=== PATIENT | male | born 1975 | race African-American/Black ===

== ENCOUNTER 2020-03-22 12:50 | Inpatient (IN) | payer OTHER ==
[2020-03-22] MEDS ORDERED: SODIUM CHLORIDE 0.9% 1,000 ML IV ONE (13:53)
--- NOTE | 2020-03-22 13:54 | ED ---
General Adult HPI - General Source: patient, EMS, RN notes reviewed, old records reviewed Mode of arrival: EMS Limitations: no limitations <Kesha Jones - Last Filed: 03/22/20 14:50> <Song Vega - Last Filed: 03/22/20 16:59> - General Chief complaint: Recheck/Abnormal Lab/Rx Stated complaint: High BP Time Seen by Provider: 03/22/20 13:11 - History of Present Illness Initial comments: Current is a 44-year-old male who presents emergency room today from [facility] for concerns for increased lethargy and elevated blood pressure. Patient does have a history of hypertension and has taken blood pressure medication in the past 3 days. According to [facility] nursing note he's been very sleepy and unable to stay awake for longer than 1 minute. He denies any symptoms associated with fatigue including headache or chest pains. He reports that he has no history of drug use and is at [facility] rehab facility for alcohol abuse. Apparently patient's blood pressures were 180 or higher systolic. In regards to patient's lethargy he states that he has not slept well in the past few days prior to coming [facility]. Patient has been there for approximately one day.Patient reports that he is from [facility] (Kesha Jones) - Related Data Home Medications Medication Instructions Recorded Confirmed Acetaminophen [Tylenol 8 Hour] 650 mg PO Q4H PRN 03/22/20 03/22/20 Chlorpheniramine Maleate 4 mg PO Q4H PRN 03/22/20 03/22/20 [Chlor-Trimeton] Folic Acid 1 mg PO DAILY@0600 03/22/20 03/22/20 Ibuprofen [Motrin] 600 mg PO Q6H PRN 03/22/20 03/22/20 Labetalol [Trandate] 200 mg PO BID@0600,1730 03/22/20 03/22/20 Multivitamins, Thera [Multivitamin 1 tab PO DAILY 03/22/20 03/22/20 (formulary)] Potassium Chloride 10 meq PO DAILY@0600 03/22/20 03/22/20 Thiamine [Vitamin B-1] 100 mg PO DAILY 03/22/20 03/22/20 amLODIPine [Norvasc] 10 mg PO ONCE 03/22/20 03/22/20 cloNIDine HCL [Catapres] 0.1 - 0.3 mg PO Q4H PRN MDD OVER 03/22/20 03/22/20 160/100 cloNIDine HCL [Catapres] 0.2 mg PO ONCE 03/22/20 03/22/20 hydroCHLOROthiazide [Hydrodiuril] 25 mg PO ONCE 03/22/20 03/22/20 traZODone HCL [Desyrel] 50 - 150 mg PO HS 03/22/20 03/22/20 Allergies Allergy/AdvReac Type Severity Reaction Status Date / Time GERMANIA Inhibitors AdvReac Anaphylaxis Verified 03/22/20 13:55 Review of Systems ROS Other: All systems not noted in ROS Statement are negative. <Kesha Jones - Last Filed: 03/22/20 14:50> ROS Other: All systems not noted in ROS Statement are negative. <Song Vega - Last Filed: 03/22/20 16:59> ROS Statement: Those systems with pertinent positive or pertinent negative responses have been documented in the HPI. Past Medical History Past Medical History: Hypertension, Sleep Apnea/CPAP/BIPAP History of Any Multi-Drug Resistant Organisms: None Reported Past Surgical History: No Surgical Hx Reported Past Psychological History: No Psychological Hx Reported Smoking Status: Current some day smoker Past Alcohol Use History: Occasional Past Drug Use History: Marijuana <Denisse Jonesily - Last Filed: 03/22/20 14:50> General Exam Limitations: no limitations General appearance: alert, in no apparent distress Head exam: Present: atraumatic, normocephalic, normal inspection Eye exam: Present: normal appearance, PERRL, EOMI, other. Absent: scleral icterus, conjunctival injection, periorbital swelling ENT exam: Present: normal exam, mucous membranes moist Neck exam: Present: normal inspection. Absent: tenderness, meningismus, lymphad enopathy Respiratory exam: Present: normal lung sounds bilaterally. Absent: respiratory distress, wheezes, rales, rhonchi, stridor Cardiovascular Exam: Present: regular rate, normal rhythm, normal heart sounds. Absent: systolic murmur, diastolic murmur, rubs, gallop, clicks GI/Abdominal exam: Present: soft, normal bowel sounds. Absent: distended, tenderness, guarding, rebound, rigid Extremities exam: Present: normal inspection, full ROM, normal capillary refill. Absent: tenderness, pedal edema, joint swelling, calf tenderness Back exam: Present: normal inspection Neurological exam: Present: alert, oriented X3, CN II-XII intact Psychiatric exam: Present: normal affect, normal mood Skin exam: Present: warm, dry, intact, normal color. Absent: rash <Kesha Jones - Last Filed: 03/22/20 14:50> - General Exam Comments Initial Comments: 44-year-old male. Patient is very fatigued, will answer questions and is alert and oriented but falls asleep after a minute of staying awake. (Kesha Jones) Course <Kesha Jones - Last Filed: 03/22/20 14:50> Vital Signs 03/22/20 03/22/20 03/22/20 12:51 14:19 15:16 Temperature 98.0 F Pulse Rate 90 97 96 Respiratory 20 20 20 Rate Blood Pressure 155/115 168/120 175/122 O2 Sat by Pulse 96 100 94 L Oximetry 03/22/20 03/22/20 16:24 16:52 Temperature 98.3 F Pulse Rate 82 Respiratory 18 18 Rate Blood Pressure 147/110 134/69 O2 Sat by Pulse 98 Oximetry - Reevaluation(s) Reevaluation #1: 03/22/20 14:51 I went to reevaluate the Patient at this time and blood pressure is noted to be 185/118. Patient was sleepy but easily arousable and alert and cooperative. He complains of no pain. Discussed his blood pressure started to go up. When questioned if he took his blood pressure medication he states that he did physically take it at the rehab facility but they were given to him by [facility] staff as documented. When discussing possible admission for hypertensive emergency Patient states he would prefer to go home. (Kesha Jones) EKG Findings - EKG Comments: EKG Findings:: EKG performed at 1410 shows sinus rhythm with left anterior fascicular block. Voltage criteria for LVH. Inferior infarct age- indeterminate. Ventricular rate of [address] interval is 158 ms. QRS duration is 110 ms. QT QTc is 412/481 ms. <Kesha Jones - Last Filed: 03/22/20 14:50> Medical Decision Making - Lab Data Result diagrams: 03/22/20 14:00 03/22/20 14:00 <Kesha Jones - Last Filed: 03/22/20 14:50> - Lab Data Result diagrams: 03/22/20 14:00 03/22/20 16:25 <Song Vega - Last Filed: 03/22/20 16:59> - Medical Decision Making 44-year-old male with history of alcohol abuse presents [facility] for concerns for uncontrolled blood pressures and fatigue. Patient initially reported he was not taking his blood pressure medication however review [facility] he has been compliant with his blood pressure medications. The continues to be hypertensive. Patient is also very groggy but has been dosed on Ativan to help prevent withdrawals from alcohol. He denies any complaints or symptoms of elevated blood pressure including headache or chest pain.Patient was given IV fluids labwork obtained. He was quite fatigued. She has significant lab abnormalities with 3.1. Potassium of 2.7. He does have an elevated troponin as well. He denies chest pain. No previous EKGs to compare from. Denies any previous cardiac stents. is quite worried to go back to rehab sees synthesis will be paid for his rehab from his [employer]. I discussed with significant lab 3 dementia Patient would need to be admitted. We'll transfer the case to Dr. Monroe at 3:06 PM. (Kesha Jones) Patient had repeat laboratory testing in the emergency department, suspect that his initial labs were diluted. Patient has a normal calcium, he does have hypokalemia which is replaced the emergency department. Troponin mildly elevated with no chest pain, this level will be trended. He is given an aspirin in the emergency department. Case discussed with Dr. Marmolejo who will admit for alcohol withdrawal, monitoring of blood pressure, and electronically abnormalities. (Song Vega) - Lab Data Lab Results 03/22/20 03/22/20 03/22/20 Range/Units 14:00 14:00 14:00 WBC 5.4 (3.8-10.6) k/uL RBC 5.65 (4.30-5.90) m/uL Hgb 16.4 (13.0-17.5) gm/dL Hct 52.3 (39.0-53.0) % MCV 92.6 (80.0-100.0) fL MCH 29.1 (25.0-35.0) pg MCHC 31.4 (31.0-37.0) g/dL RDW 16.6 H (11.5-15.5) % Plt Count 161 (150-450) k/uL Neutrophils % 71 % Lymphocytes % 17 % Monocytes % 4 % Eosinophils % 5 % Basophils % 1 % Neutrophils # 3.8 (1.3-7.7) k/uL Lymphocytes # 0.9 L (1.0-4.8) k/uL Monocytes # 0.2 (0-1.0) k/uL Eosinophils # 0.3 (0-0.7) k/uL Basophils # 0.1 (0-0.2) k/uL Anisocytosis Slight Sodium 149 H (137-145) mmol/L Potassium 2.9 L (3.5-5.1) mmol/L Chloride 72 L* (98-107) mmol/L Carbon Dioxide 20 L (22-30) mmol/L Anion Gap 57 mmol/L BUN 9 (9-20) mg/dL Creatinine 0.81 (0.66-1.25) mg/dL Est GFR (CKD-EPI)AfAm >90 (>60 ml/min/1.73 sqM) Est GFR (CKD-EPI)NonAf >90 (>60 ml/min/1.73 sqM) Glucose 127 H (74-99) mg/dL Calcium 3.7 L* (8.4-10.2) mg/dL Total Bilirubin 3.4 H (0.2-1.3) mg/dL AST 73 H (17-59) U/L ALT 62 H (4-49) U/L Alkaline Phosphatase 44 (38-126) U/L Troponin I 0.060 H* (0.000-0.034) ng/mL Total Protein 6.6 (6.3-8.2) g/dL Albumin 4.7 (3.5-5.0) g/dL Urine Color Urine Appearance (Clear) Urine pH (5.0-8.0) Ur Specific [place] (1.001-1.035) Urine Protein (Negative) Urine Glucose (UA) (Negative) Urine Ketones (Negative) Urine Blood (Negative) Urine Nitrite (Negative) Urine Bilirubin (Negative) Urine Urobilinogen (<2.0) mg/dL Ur Leukocyte Esterase (Negative) Urine WBC (0-5) /hpf Ur Squamous Epith Cells (0-4) /hpf Hyaline Casts (0-2) /lpf Urine Mucus (None) /hpf Urine Opiates Screen (NotDetected) Ur Oxycodone Screen (NotDetected) Urine Methadone Screen (NotDetected) Ur Propoxyphene Screen (NotDetected) Ur Barbiturates Screen (NotDetected) U Tricyclic Antidepress (NotDetected) Ur Phencyclidine Scrn (NotDetected) Ur Amphetamines Screen (NotDetected) U Methamphetamines Scrn (NotDetected) U Benzodiazepines Scrn (NotDetected) Urine Cocaine Screen (NotDetected) U Marijuana (THC) Screen (NotDetected) 03/22/20 03/22/20 03/22/20 Range/Units 14:00 14:00 16:25 WBC (3.8-10.6) k/uL RBC (4.30-5.90) m/uL Hgb (13.0-17.5) gm/dL Hct (39.0-53.0) % MCV (80.0-100.0) fL MCH (25.0-35.0) pg MCHC (31.0-37.0) g/dL RDW (11.5-15.5) % Plt Count (150-450) k/uL Neutrophils % % Lymphocytes % % Monocytes % % Eosinophils % % Basophils % % Neutrophils # (1.3-7.7) k/uL Lymphocytes # (1.0-4.8) k/uL Monocytes # (0-1.0) k/uL Eosinophils # (0-0.7) k/uL Basophils # (0-0.2) k/uL Anisocytosis Sodium 139 (137-145) mmol/L Potassium 3.1 L (3.5-5.1) mmol/L Chloride 95 L (98-107) mmol/L Carbon Dioxide 30 (22-30) mmol/L Anion Gap 14 mmol/L BUN 12 (9-20) mg/dL Creatinine 1.04 (0.66-1.25) mg/dL Est GFR (CKD-EPI)AfAm >90 (>60 ml/min/1.73 sqM) Est GFR (CKD-EPI)NonAf 89 (>60 ml/min/1.73 sqM) Glucose 132 H (74-99) mg/dL Calcium 8.2 L (8.4-10.2) mg/dL Total Bilirubin 3.4 H (0.2-1.3) mg/dL AST 90 H (17-59) U/L ALT 80 H (4-49) U/L Alkaline Phosphatase 72 (38-126) U/L Troponin I (0.000-0.034) ng/mL Total Protein 7.8 (6.3-8.2) g/dL Albumin 4.7 (3.5-5.0) g/dL Urine Color [place] Urine Appearance Clear (Clear) Urine pH 6.0 (5.0-8.0) Ur Specific [place] 1.017 (1.001-1.035) Urine Protein 1+ H (Negative) Urine Glucose (UA) Negative (Negative) Urine Ketones Negative (Negative) Urine Blood Negative (Negative) Urine Nitrite Negative (Negative) Urine Bilirubin 1+ H (Negative) Urine Urobilinogen 8.0 (<2.0) mg/dL Ur Leukocyte Esterase Trace H (Negative) Urine WBC 4 (0-5) /hpf Ur Squamous Epith Cells <1 (0-4) /hpf Hyaline Casts 1 (0-2) /lpf Urine Mucus Moderate H (None) /hpf Urine Opiates Screen Not Detected (NotDetected) Ur Oxycodone Screen Not Detected (NotDetected) Urine Methadone Screen Not Detected (NotDetected) Ur Propoxyphene Screen Not Detected (NotDetected) Ur Barbiturates Screen Not Detected (NotDetected) U Tricyclic Antidepress Not Detected (NotDetected) Ur Phencyclidine Scrn Not Detected (NotDetected) Ur Amphetamines Screen Not Detected (NotDetected) U Methamphetamines Scrn Not Detected (NotDetected) U Benzodiazepines Scrn Detected H (NotDetected) Urine Cocaine Screen Not Detected (NotDetected) U Marijuana (THC) Screen Detected H (NotDetected) 03/22/20 13:54 EKG performed at 1332 shows sinus rhythm with short CT and premature atrial promises. Right bundle branch block. Abnormal EKG. Ventricular rate of [address] interval is 96 ms. QS duration is 124 ms. QT QTc is 392/435 ms. (Kesha Jones) Disposition <Kesha Jones - Last Filed: 03/22/20 14:50> Is patient prescribed a controlled substance at d/c from ED?: No Decision to Admit Reason: Admit from EC Decision Date: 03/22/20 Decision Time: 16:59 <Song Vega - Last Filed: 03/22/20 16:59> Clinical Impression: Hypokalemia, Hypertension, Elevated troponin, Alcohol withdrawal Disposition: ADMITTED IP TO THIS [facility] Condition: Stable Referrals: Nonstaff,Physician [Primary Care Provider] - 1-2 days
[2020-03-22 14:29] LABS: Anisocytosis Slight; Basophils # (A) 0.1 k/uL (0-0.2); Basophils % (A) 1 %; Eosinophils # (A) 0.3 k/uL (0-0.7); Eosinophils % (A) 5 %; HCT 52.3 % (39.0-53.0); HGB 16.4 gm/dL (13.0-17.5); Lymphocytes # (A) 0.9 k/uL (1.0-4.8); Lymphocytes % (A) 17 %; MCH 29.1 pg (25.0-35.0); MCHC 31.4 g/dL (31.0-37.0); MCV 92.6 fL (80.0-100.0); Monocytes # (A) 0.2 k/uL (0-1.0); Monocytes % (A) 4 %; Neutrophils # (A) 3.8 k/uL (1.3-7.7); Neutrophils % (A) 71 %; Platelet Count 161 k/uL (150-450); RBC 5.65 m/uL (4.30-5.90); RDW 16.6 % (11.5-15.5); WBC 5.4 k/uL (3.8-10.6)
[2020-03-22 14:33] LABS: Appearance,Urine Clear (Clear); Bilirubin,Urine 1+ (Negative); Blood,Urine Negative (Negative); Color,Urine Light Orange; Glucose,Urine (UA) Negative (Negative); Hyaline Casts,Urine 1 /lpf (0-2); Ketones,Urine Negative (Negative); Leukocyte Esterase,Urine Trace (Negative); Mucus,Urine Moderate /hpf; Nitrite,Urine Negative (Negative); Protein,Urine 1+ (Negative); Specific Gravity,Urine 1.017 (1.001-1.035); Squamous Epithelial Cell,Urine <1 /hpf (0-4); WBC,Urine 4 /hpf (0-5)
[2020-03-22 14:39] LABS: ALT 62 U/L (4-49); AST 73 U/L (17-59); African American GFR (CKD) >90 (>60 ml/min/1.73 sqM); Albumin 4.7 g/dL (3.5-5.0); Alkaline Phosphatase 44 U/L (38-126); Anion Gap 57 mmol/L; Blood Urea Nitrogen 9 mg/dL (9-20); Carbon Dioxide 20 mmol/L (22-30); Glucose 127 mg/dL (74-99); Non-African American GFR(CKD) >90 (>60 ml/min/1.73 sqM); Potassium 2.9 mmol/L (3.5-5.1); Sodium 149 mmol/L (137-145); Total Bilirubin 3.4 mg/dL (0.2-1.3); Total Protein 6.6 g/dL (6.3-8.2)
[2020-03-22 14:42] LABS: Amphetamine Screen,Urine Not Detected (NotDetected); Barbiturate Screen,Urine Not Detected (NotDetected); Benzodiazepines Screen,Urine Detected (NotDetected); Cocaine Screen,Urine Not Detected (NotDetected); Methadone Screen, Urine Not Detected (NotDetected); Opiate Screen,Urine Not Detected (NotDetected); Oxycodone Screen, Urine Not Detected (NotDetected); Phencyclidine Screen,Urine Not Detected (NotDetected); Tricyclic Antidepressant,Urine Not Detected (NotDetected); Urn Cannabinoid Scrn Detected (NotDetected)
[2020-03-22 14:48] LABS: Calcium 3.7 mg/dL (8.4-10.2); Chloride 72 mmol/L (98-107)
[2020-03-22] MEDS ORDERED: LABETALOL 5 MG/ML VIAL MDV IVP STA (14:50)
[2020-03-22] MEDS ORDERED: Potassium Replacement Protocol 1 EACH MISC MISCELLANE PRN (15:03)
[2020-03-22] MEDS ORDERED: POTASSIUM CHLORIDE ER 20 MEQ TAB.ER PO STA (15:04)
[2020-03-22] MEDS ORDERED: CALCIUM GLUCONATE 2 GM in SODIUM CHLORIDE 0.9% 100 ML IVPB ONE (15:15)
--- NOTE | 2020-03-22 15:31 | XR ---
EXAMINATION TYPE: XR chest 2V DATE OF EXAM: 03/22/2020 COMPARISON: NONE HISTORY: Chest pain TECHNIQUE: Frontal and lateral views of the chest are obtained. FINDINGS: There is no focal air space opacity. No evidence for pneumothorax. No pleural effusion. The cardiac silhouette size is within normal limits. The osseous structures are grossly intact. IMPRESSION: 1. No acute cardiopulmonary process.
[2020-03-22 16:45] LABS: ALT 80 U/L (4-49); AST 90 U/L (17-59); African American GFR (CKD) >90 (>60 ml/min/1.73 sqM); Albumin 4.7 g/dL (3.5-5.0); Alkaline Phosphatase 72 U/L (38-126); Anion Gap 14 mmol/L; Blood Urea Nitrogen 12 mg/dL (9-20); Calcium 8.2 mg/dL (8.4-10.2); Carbon Dioxide 30 mmol/L (22-30); Chloride 95 mmol/L (98-107); Glucose 132 mg/dL (74-99); Non-African American GFR(CKD) 89 (>60 ml/min/1.73 sqM); Potassium 3.1 mmol/L (3.5-5.1); Sodium 139 mmol/L (137-145); Total Bilirubin 3.4 mg/dL (0.2-1.3); Total Protein 7.8 g/dL (6.3-8.2)
[2020-03-22] MEDS ORDERED: THIAMINE 100 MG/ML 2 ML VIAL IM STA (16:56)
[2020-03-22] MEDS ORDERED: ASPIRIN 325 MG TAB PO STA (16:56)
[2020-03-22] MEDS ORDERED: LORazepam 2 MG/ML INJ IV PRN ×3 (16:56)
[2020-03-22] MEDS ORDERED: NALOXONE 0.4 MG/ML 1 ML VIAL IV PRN (16:57)
[2020-03-22] MEDS ORDERED: ACETAMINOPHEN TAB 325 MG TAB PO PRN (17:26)
--- NOTE | 2020-03-22 17:37 | P.HPIM ---
History of Present Illness 44-year-old pleasant male was a sent in from [facility] where he was admitted for alcohol rehabilitation program. Patient to use used to drink a daily basis since: 19 pandemic back before this patient used to drink only in weekends. Patient denied any fever chills patient had a previous withdrawals in the past patient was sent in here because of highly elevated blood pressure patient is on multiple antidepressant medications at home patient also found to have mildly elevated troponin. EKG is not are loaded into the system yet. She denied any fever chills patient denied any chest pain nausea vomiting patient the is on multiple antiepileptic present medications including beta denia, Norvasc, diuretic and that 10 mg of potassium supplementation patient potassium is low at 3.1. Review of Systems REVIEW OF SYSTEMS: CONSTITUTIONAL: No fever, no malaise, no fatigue. HEENT: No recent visual problems or hearing problems. Denied any sore throat. CARDIOVASCULAR: No chest pain, orthopnea, PND, no palpitations, no syncope. PULMONARY: No shortness of breath, no cough, no hemoptysis. GASTROINTESTINAL: No diarrhea, no nausea, no vomiting, no abdominal pain. NEUROLOGICAL: No headaches, no weakness, no numbness. HEMATOLOGICAL: Denies any bleeding or petechiae. GENITOURINARY: Denies any burning micturition, frequency, or urgency. MUSCULOSKELETAL/RHEUMATOLOGICAL: Denies any joint pain, swelling, or any muscle pain. ENDOCRINE: Denies any polyuria or polydipsia. The rest of the 14-point review of systems is negative. Past Medical History Past Medical History: Hypertension, Sleep Apnea/CPAP/BIPAP History of Any Multi-Drug Resistant Organisms: None Reported Past Surgical History: No Surgical Hx Reported Past Psychological History: No Psychological Hx Reported Smoking Status: Current some day smoker Past Alcohol Use History: Occasional Past Drug Use History: Marijuana Medications and Allergies Home Medications Medication Instructions Recorded Confirmed Type Acetaminophen [Tylenol 8 Hour] 650 mg PO Q4H PRN 03/22/20 03/22/20 History Chlorpheniramine Maleate 4 mg PO Q4H PRN 03/22/20 03/22/20 History [Chlor-Trimeton] Folic Acid 1 mg PO DAILY@0600 03/22/20 03/22/20 History Ibuprofen [Motrin] 600 mg PO Q6H PRN 03/22/20 03/22/20 History Labetalol [Trandate] 200 mg PO BID@0600,1730 03/22/20 03/22/20 History Multivitamins, Thera [Multivitamin 1 tab PO DAILY 03/22/20 03/22/20 History (formulary)] Potassium Chloride 10 meq PO DAILY@0600 03/22/20 03/22/20 History Thiamine [Vitamin B-1] 100 mg PO DAILY 03/22/20 03/22/20 History amLODIPine [Norvasc] 10 mg PO ONCE 03/22/20 03/22/20 History cloNIDine HCL [Catapres] 0.1 - 0.3 mg PO Q4H PRN MDD OVER 03/22/20 03/22/20 History 160/100 cloNIDine HCL [Catapres] 0.2 mg PO ONCE 03/22/20 03/22/20 History hydroCHLOROthiazide [Hydrodiuril] 25 mg PO ONCE 03/22/20 03/22/20 History traZODone HCL [Desyrel] 50 - 150 mg PO HS 03/22/20 03/22/20 History Allergies Allergy/AdvReac Type Severity Reaction Status Date / Time GERMANIA Inhibitors AdvReac Anaphylaxis Verified 03/22/20 13:55 Physical Exam Vitals: Vital Signs Temp Pulse Resp BP Pulse Ox 03/22/20 16:52 98.3 F 82 18 134/69 98 03/22/20 16:24 18 147/110 03/22/20 15:16 96 20 175/122 94 L 03/22/20 14:19 97 20 168/120 100 03/22/20 12:51 98.0 F 90 20 155/115 96 Intake and Output 03/22/20 03/22/20 03/22/20 06:59 14:59 22:59 Other: Weight 126.099 kg PHYSICAL EXAMINATION: GENERAL: The patient is alert and oriented x3, not in any acute distress. Obese. HEENT: Pupils are round and equally reacting to light. EOMI. No scleral icterus. No conjunctival pallor. Normocephalic, atraumatic. No pharyngeal erythema. No thyromegaly. CARDIOVASCULAR: S1 and S2 present. No murmurs, rubs, or gallops. PULMONARY: Chest is clear to auscultation, no wheezing or crackles. ABDOMEN: Soft, nontender, nondistended, normoactive bowel sounds. No palpable organomegaly. MUSCULOSKELETAL: No joint swelling or deformity. EXTREMITIES: No cyanosis, clubbing, or pedal edema. NEUROLOGICAL: Gross neurological examination did not reveal any focal deficits. SKIN: No rashes. Results CBC & Chem 7: 03/22/20 14:00 03/22/20 16:25 Labs: Abnormal Lab Results - Last 24 Hours (Table) 03/22/20 03/22/20 03/22/20 Range/Units 14:00 14:00 14:00 RDW 16.6 H (11.5-15.5) % Lymphocytes # 0.9 L (1.0-4.8) k/uL Sodium 149 H (137-145) mmol/L Potassium 2.9 L (3.5-5.1) mmol/L Chloride 72 L* (98-107) mmol/L Carbon Dioxide 20 L (22-30) mmol/L Glucose 127 H (74-99) mg/dL Calcium 3.7 L* (8.4-10.2) mg/dL Total Bilirubin 3.4 H (0.2-1.3) mg/dL AST 73 H (17-59) U/L ALT 62 H (4-49) U/L Troponin I 0.060 H* (0.000-0.034) ng/mL Urine Protein (Negative) Urine Bilirubin (Negative) Ur Leukocyte Esterase (Negative) Urine Mucus (None) /hpf U Benzodiazepines Scrn (NotDetected) U Marijuana (THC) Screen (NotDetected) 03/22/20 03/22/20 03/22/20 Range/Units 14:00 14:00 16:25 RDW (11.5-15.5) % Lymphocytes # (1.0-4.8) k/uL Sodium (137-145) mmol/L Potassium 3.1 L (3.5-5.1) mmol/L Chloride 95 L (98-107) mmol/L Carbon Dioxide (22-30) mmol/L Glucose 132 H (74-99) mg/dL Calcium 8.2 L (8.4-10.2) mg/dL Total Bilirubin 3.4 H (0.2-1.3) mg/dL AST 90 H (17-59) U/L ALT 80 H (4-49) U/L Troponin I (0.000-0.034) ng/mL Urine Protein 1+ H (Negative) Urine Bilirubin 1+ H (Negative) Ur Leukocyte Esterase Trace H (Negative) Urine Mucus Moderate H (None) /hpf U Benzodiazepines Scrn Detected H (NotDetected) U Marijuana (THC) Screen Detected H (NotDetected) 03/22/20 Range/Units 16:25 RDW (11.5-15.5) % Lymphocytes # (1.0-4.8) k/uL Sodium (137-145) mmol/L Potassium (3.5-5.1) mmol/L Chloride (98-107) mmol/L Carbon Dioxide (22-30) mmol/L Glucose (74-99) mg/dL Calcium (8.4-10.2) mg/dL Total Bilirubin (0.2-1.3) mg/dL AST (17-59) U/L ALT (4-49) U/L Troponin I 0.061 H* (0.000-0.034) ng/mL Urine Protein (Negative) Urine Bilirubin (Negative) Ur Leukocyte Esterase (Negative) Urine Mucus (None) /hpf U Benzodiazepines Scrn (NotDetected) U Marijuana (THC) Screen (NotDetected) Assessment and Plan Plan: -Essential hypertension uncontrolled, accelerated: Patient's diuretic dose will be increased to 50 mg or changed to chlorthalidone, beta denia will be switched to Coreg and will monitor the blood pressure. Patient doesn't have hypertensive emergency patient has hypertensive urgency -Alcohol abuse: Patient is undergoing the alcohol rehabilitation program before this hospital physician -Mildly elevated troponins Secondary to her elevated blood pressure cardiology will be consulted will rule out any acute coronary syndromes a lot and EKG -Nicotine abuse: Counseling was provided -Sleep apnea patient will continue with his CPAP machine will also rule out diabetes mellitus with hemoglobin A1c. -Acute alcoholic hepatitis -hypokalemia: Secondary to diuretics is receiving at home potassium will be replace -DVT prophylaxis early ambulation
[2020-03-22] MEDS: POTASSIUM CHLORIDE 20 MEQ in WATER FOR INJECTION 1 100ML.BAG IVPB SCH ×3 (17:47→21:36)
[2020-03-22] MEDS: THIAMINE 100 MG TAB PO SCH (17:52)
[2020-03-22] MEDS: carvediloL 12.5 MG TAB PO SCH (20:04)
[2020-03-22] MEDS: traZODone HCL 50 MG TAB PO SCH (20:04)
[2020-03-23] MEDS: FOLIC ACID 1 MG TAB PO SCH (06:32)
[2020-03-23] MEDS: THIAMINE 100 MG TAB PO SCH ×2 (06:33→16:24)
[2020-03-23] MEDS: POTASSIUM CHLORIDE ER 20 MEQ TAB.ER PO SCH ×3 (06:33→12:58)
[2020-03-23 07:02] LABS: VBG PH 7.5 (7.31-7.41)
[2020-03-23] MEDS: MULTIVITAMINS, THERA 1 EACH TAB PO SCH (08:41)
[2020-03-23] MEDS: hydroCHLOROthiazide 25 MG TAB PO SCH (08:41)
[2020-03-23] MEDS: amLODIPine 10 MG TAB PO SCH (08:42)
[2020-03-23] MEDS: carvediloL 12.5 MG TAB PO SCH ×2 (08:42→20:04)
[2020-03-23 08:45] LABS: African American GFR (CKD) >90 (>60 ml/min/1.73 sqM); Anion Gap 11 mmol/L; Blood Urea Nitrogen 17 mg/dL (9-20); Calcium 7.6 mg/dL (8.4-10.2); Carbon Dioxide 27 mmol/L (22-30); Chloride 100 mmol/L (98-107); Glucose 127 mg/dL (74-99); Non-African American GFR(CKD) >90 (>60 ml/min/1.73 sqM); Sodium 138 mmol/L (137-145)
[2020-03-23] MEDS ORDERED: THIAMINE 100 MG TAB PO SCH (09:00)
--- NOTE | 2020-03-23 11:12 | P.CRDCN ---
History of Present Illness Consult date: 03/23/20 History of present illness: This is a very pleasant 44 year-old the [place]an gentleman with a past medical history significant for hypertension and history of alcohol abuse who was transferred from an alcohol rehab facility to the hospital for further evaluation of uncontrolled blood pressure. The patient was admitted to that facility just recently. His pressure was found to be elevated and he was transferred for further evaluation. The patient stated that he was taking blood pressure medications at home but he has not been taking the medication for the last several days. We consulted to see the patient for further evaluation of abnormal cardiac enzymes. The troponin was checked and came in to be slightly abnormal but flat across the board. The patient clinically is asymptomatic. He denies any symptoms of chest pain or chest discomfort, shortness of breath, dizziness, heart racing, heart fluttering, or syncope. No lower extremities edema. The pressure has been better controlled on the current medical regimen. The EKG showed sinus rhythm without significant ST or T-wave abnormalities. The patient is not aware of any history of coronary artery disease or congestive heart failure or cardiac arrhythmia but he is aware of hypertension but he is not very compliant with his blood pressure medications. The EKG also showed findings consistent with left ventricular hypertrophy. At this point I would continue the current medical regimen. Continue monitor the blood pressure. Consider medical treatment for the mildly abnormal troponin which is likely related to uncontrolled blood pressure. I'll obtain an echocardiogram to assess for hypertensive heart disease and evidence of left ventricular hypertrophy. We'll continue following up with the patient Past Medical History Past Medical History: Hypertension, Sleep Apnea/CPAP/BIPAP Additional Past Medical History / Comment(s): ETOH(a few pints of brown liquor a day) History of Any Multi-Drug Resistant Organisms: None Reported Past Surgical History: No Surgical Hx Reported Past Psychological History: No Psychological Hx Reported Smoking Status: Current some day smoker Past Alcohol Use History: Occasional Past Drug Use History: Marijuana - Past Family History Father Family Medical History: Hypertension Mother Family Medical History: Hypertension Medications and Allergies Home Medications Medication Instructions Recorded Confirmed Type Acetaminophen [Tylenol 8 Hour] 650 mg PO Q4H PRN 03/22/20 03/22/20 History Chlorpheniramine Maleate 4 mg PO Q4H PRN 03/22/20 03/22/20 History [Chlor-Trimeton] Folic Acid 1 mg PO DAILY@0600 03/22/20 03/22/20 History Ibuprofen [Motrin] 600 mg PO Q6H PRN 03/22/20 03/22/20 History Labetalol [Trandate] 200 mg PO BID@0600,1730 03/22/20 03/22/20 History Multivitamins, Thera [Multivitamin 1 tab PO DAILY 03/22/20 03/22/20 History (formulary)] Potassium Chloride 10 meq PO DAILY@0600 03/22/20 03/22/20 History Thiamine [Vitamin B-1] 100 mg PO DAILY 03/22/20 03/22/20 History amLODIPine [Norvasc] 10 mg PO ONCE 03/22/20 03/22/20 History cloNIDine HCL [Catapres] 0.1 - 0.3 mg PO Q4H PRN MDD OVER 03/22/20 03/22/20 History 160/100 cloNIDine HCL [Catapres] 0.2 mg PO ONCE 03/22/20 03/22/20 History hydroCHLOROthiazide [Hydrodiuril] 25 mg PO ONCE 03/22/20 03/22/20 History traZODone HCL [Desyrel] 50 - 150 mg PO HS 03/22/20 03/22/20 History Allergies Allergy/AdvReac Type Severity Reaction Status Date / Time GERMANIA Inhibitors AdvReac Anaphylaxis Verified 03/22/20 13:55 Physical Exam Vitals: Vital Signs Temp Pulse Pulse Resp BP BP Pulse Ox 03/23/20 08:40 97.8 F 98 18 130/89 95 03/23/20 03:58 97.9 F 92 20 153/108 96 03/23/20 00:00 98 F 86 20 133/84 95 03/22/20 21:38 98 18 146/104 95 03/22/20 20:10 91 18 143/107 96 03/22/20 19:53 88 18 143/109 03/22/20 19:06 98.0 F 87 18 155/116 96 03/22/20 18:33 98.6 F 99 18 148/103 96 03/22/20 17:52 88 18 171/125 97 03/22/20 16:52 98.3 F 82 18 134/69 98 03/22/20 16:24 18 147/110 03/22/20 15:16 96 20 175/122 94 L 03/22/20 14:19 97 20 168/120 100 03/22/20 12:51 98.0 F 90 20 155/115 96 Intake and Output 03/22/20 03/23/20 03/23/20 22:59 06:59 14:59 Intake Total 540 480 Balance 540 480 Intake: Oral 540 480 Other: # Voids 2 1 Weight 126.099 kg 123.5 kg - Constitutional General appearance: no acute distress - Respiratory Respiratory: bilateral: CTA - Cardiovascular Rhythm: regular Heart sounds: normal: S1, S2 Results 03/22/20 14:00 03/23/20 06:22 Cardiac Enzymes 03/22/20 03/22/20 03/22/20 Range/Units 14:00 14:00 16:25 AST 73 H 90 H (17-59) U/L Troponin I 0.060 H* (0.000-0.034) ng/mL 03/22/20 03/22/20 03/22/20 Range/Units 16:25 19:23 22:09 AST (17-59) U/L Troponin I 0.061 H* 0.063 H* 0.066 H* (0.000-0.034) ng/mL CBC 03/22/20 Range/Units 14:00 WBC 5.4 (3.8-10.6) k/uL RBC 5.65 (4.30-5.90) m/uL Hgb 16.4 (13.0-17.5) gm/dL Hct 52.3 (39.0-53.0) % Plt Count 161 (150-450) k/uL Comprehensive Metabolic Panel 03/22/20 03/22/20 03/23/20 Range/Units 14:00 16:25 06:22 Sodium 149 H 139 138 (137-145) mmol/L Potassium 2.9 L 3.1 L 3.0 L (3.5-5.1) mmol/L Chloride 72 L* 95 L 100 (98-107) mmol/L Carbon Dioxide 20 L 30 27 (22-30) mmol/L BUN 9 12 17 (9-20) mg/dL Creatinine 0.81 1.04 1.01 (0.66-1.25) mg/dL Glucose 127 H 132 H 127 H (74-99) mg/dL Calcium 3.7 L* 8.2 L 7.6 L (8.4-10.2) mg/dL AST 73 H 90 H (17-59) U/L ALT 62 H 80 H (4-49) U/L Alkaline Phosphatase 44 72 (38-126) U/L Total Protein 6.6 7.8 (6.3-8.2) g/dL Albumin 4.7 4.7 (3.5-5.0) g/dL Current Medications Generic Name Dose Route Start Last Admin Trade Name Freq PRN Reason Stop Dose Admin Acetaminophen 650 mg 03/22/20 17:26 Tylenol Tab PO Q4H PRN Pain or Fever > 100.5 Amlodipine Besylate 10 mg 03/23/20 09:00 03/23/20 08:42 Norvasc PO 10 mg DAILY GRACIE Administration Carvedilol 12.5 mg 03/22/20 21:00 03/23/20 08:42 Coreg PO 12.5 mg BID GRACIE Administration Folic Acid 1 mg 03/23/20 06:00 03/23/20 06:32 Folic Acid PO 1 mg DAILY@0600 GRACIE Administration Hydrochlorothiazide 50 mg 03/23/20 09:00 03/23/20 08:41 Hydrodiuril PO 50 mg DAILY GRACIE Administration Lorazepam 1 mg 03/22/20 16:56 Ativan IV Q2HR PRN CIWA 8 or 9 Lorazepam 1 mg 03/22/20 16:56 Ativan IV Q1HR PRN CIWA 10 to 15 Lorazepam 2 mg 03/22/20 16:56 Ativan IV 03/24/20 16:56 Q10M PRN CIWA 16 or higher Miscellaneous Information 1 each 03/22/20 15:03 Potassium Per Protocol MISCELLANE DAILY PRN Per Protocol Protocol Multivitamins 1 each 03/23/20 09:00 03/23/20 08:41 Theragran PO 1 each DAILY GRACIE Administration Naloxone HCl 0.2 mg 03/22/20 16:57 Narcan IV Q2M PRN Opioid Reversal Potassium Chloride 20 meq 03/23/20 06:00 03/23/20 06:33 K-Dur 20 PO 20 meq DAILY@0600 GRACIE Administration Thiamine HCl 100 mg 03/22/20 17:30 03/23/20 06:33 Vitamin B-1 PO 100 mg BID-W/MEALS GRACIE Administration Trazodone HCl 100 mg 03/22/20 21:00 03/22/20 20:04 Desyrel PO 100 mg HS GRACIE Administration Intake and Output 03/22/20 03/23/20 03/23/20 22:59 06:59 14:59 Intake Total 540 480 Balance 540 480 Intake: Oral 540 480 Other: # Voids 2 1 Weight 126.099 kg 123.5 kg 03/22/20 14:00 03/23/20 06:22 Assessment and Plan Assessment: Assessment #1 hypertension urgency #2 history of alcohol abuse #3 possible sleep apnea Plan #1 continue the current medical regimen #2 continue monitor the blood pressure for at least 24 hours and adjust the medications accordingly #3 consider medical treatment for the mildly abnormal troponin which is likely related to uncontrolled blood pressure #4 obtain an echocardiogram was Doppler #5 follow-up with the patient
--- NOTE | 2020-03-23 12:01 | P.PN ---
Subjective 44 year-old the [place]ic gentleman with a past medical history significant for hypertension and history of alcohol abuse who was transferred from an alcohol rehab facility to the hospital for further evaluation of uncontrolled blood pressure. The patient was admitted to that facility just recently. His pressure was found to be elevated and he was transferred for further evaluation. The patient stated that he was taking blood pressure medications at home but he has not been taking the medication for the last several days. We consulted to see the patient for further evaluation of abnormal cardiac enzymes. The troponin was checked and came in to be slightly abnormal but flat across the board. The patient clinically is asymptomatic. He denies any symptoms of chest pain or chest discomfort, shortness of breath, dizziness, heart racing, heart fluttering, or syncope. No lower extremities edema. The pressure has been better controlled on the current medical regimen. The EKG showed sinus rhythm without significant ST or T-wave abnormalities. The patient is not aware of any history of coronary artery disease or congestive heart failure or cardiac arrhythmia but he is aware of hypertension but he is not very compliant with his blood pressure medications. The EKG also showed findings consistent with left ventricular hypertrophy. At this point I would continue the current medical regimen. Continue monitor the blood pressure. Consider medical treatment for the mildly abnormal troponin which is likely related to uncontrolled blood pressure. I'll obtain an echocardiogram to assess for hypertensive heart disease and evidence of left ventricular hypertrophy. We'll continue following up with the patient. 03/23/2020 Patient's blood pressure is well controlled at this time continue with the present regimen patient's potassium is which is being replaced. Patient I was a valid by cardiology because of mildly elevated troponin and echo is being obtain at this time further management as per cardiology. Constitutional: Denied any fatigue denied any fever. Cardio vascular: denied any chest pain, palpitations Gastrointestinal denied any nausea vomiting Pulmonary: Denied any shortness of breath cough Neurologic denied any new focal deficits All inpatient medications were reviewed and appropriate changes in these med ications as dictated in the interval history and assessment and plan. Objective - Vital Signs Vital signs: Vital Signs Temp 97.8 F 03/23/20 08:40 Pulse 98 03/23/20 08:40 Resp 18 03/23/20 08:40 BP 130/89 03/23/20 08:40 Pulse Ox 95 03/23/20 08:40 Intake & Output 03/22/20 03/23/20 03/23/20 18:59 06:59 18:59 Intake Total 540 480 Balance 540 480 Weight 126.099 kg 123.5 kg Intake: Oral 540 480 Other: # Voids 2 1 - Exam PHYSICAL EXAMINATION: GENERAL: The patient is alert and oriented x3, not in any acute distress. Obese HEENT: Pupils are round and equally reacting to light. EOMI. No scleral icterus. No conjunctival pallor. Normocephalic, atraumatic. No pharyngeal erythema. No thyromegaly. CARDIOVASCULAR: S1 and S2 present. No murmurs, rubs, or gallops. PULMONARY: Chest is clear to auscultation, no wheezing or crackles. ABDOMEN: Soft, nontender, nondistended, normoactive bowel sounds. No palpable organomegaly. MUSCULOSKELETAL: No joint swelling or deformity. EXTREMITIES: No cyanosis, clubbing, or pedal edema. NEUROLOGICAL: Gross neurological examination did not reveal any focal deficits. SKIN: No rashes. - Labs CBC & Chem 7: 03/22/20 14:00 03/23/20 06:22 Labs: Abnormal Lab Results - Last 24 Hours (Table) 03/22/20 03/22/20 03/22/20 Range/Units 14:00 14:00 14:00 RDW 16.6 H (11.5-15.5) % Lymphocytes # 0.9 L (1.0-4.8) k/uL VBG pH (7.31-7.41) VBG HCO3 (24-28) mmol/L Sodium 149 H (137-145) mmol/L Potassium 2.9 L (3.5-5.1) mmol/L Chloride 72 L* (98-107) mmol/L Carbon Dioxide 20 L (22-30) mmol/L Glucose 127 H (74-99) mg/dL Calcium 3.7 L* (8.4-10.2) mg/dL Total Bilirubin 3.4 H (0.2-1.3) mg/dL AST 73 H (17-59) U/L ALT 62 H (4-49) U/L Troponin I 0.060 H* (0.000-0.034) ng/mL Urine Protein (Negative) Urine Bilirubin (Negative) Ur Leukocyte Esterase (Negative) Urine Mucus (None) /hpf U Benzodiazepines Scrn (NotDetected) U Marijuana (THC) Screen (NotDetected) 03/22/20 03/22/20 03/22/20 Range/Units 14:00 14:00 16:25 RDW (11.5-15.5) % Lymphocytes # (1.0-4.8) k/uL VBG pH (7.31-7.41) VBG HCO3 (24-28) mmol/L Sodium (137-145) mmol/L Potassium 3.1 L (3.5-5.1) mmol/L Chloride 95 L (98-107) mmol/L Carbon Dioxide (22-30) mmol/L Glucose 132 H (74-99) mg/dL Calcium 8.2 L (8.4-10.2) mg/dL Total Bilirubin 3.4 H (0.2-1.3) mg/dL AST 90 H (17-59) U/L ALT 80 H (4-49) U/L Troponin I (0.000-0.034) ng/mL Urine Protein 1+ H (Negative) Urine Bilirubin 1+ H (Negative) Ur Leukocyte Esterase Trace H (Negative) Urine Mucus Moderate H (None) /hpf U Benzodiazepines Scrn Detected H (NotDetected) U Marijuana (THC) Screen Detected H (NotDetected) 03/22/20 03/22/20 03/22/20 Range/Units 16:25 19:23 22:09 RDW (11.5-15.5) % Lymphocytes # (1.0-4.8) k/uL VBG pH (7.31-7.41) VBG HCO3 (24-28) mmol/L Sodium (137-145) mmol/L Potassium (3.5-5.1) mmol/L Chloride (98-107) mmol/L Carbon Dioxide (22-30) mmol/L Glucose (74-99) mg/dL Calcium (8.4-10.2) mg/dL Total Bilirubin (0.2-1.3) mg/dL AST (17-59) U/L ALT (4-49) U/L Troponin I 0.061 H* 0.063 H* 0.066 H* (0.000-0.034) ng/mL Urine Protein (Negative) Urine Bilirubin (Negative) Ur Leukocyte Esterase (Negative) Urine Mucus (None) /hpf U Benzodiazepines Scrn (NotDetected) U Marijuana (THC) Screen (NotDetected) 03/23/20 03/23/20 Range/Units 06:22 06:22 RDW (11.5-15.5) % Lymphocytes # (1.0-4.8) k/uL VBG pH 7.50 H (7.31-7.41) VBG HCO3 30 H (24-28) mmol/L Sodium (137-145) mmol/L Potassium 3.0 L (3.5-5.1) mmol/L Chloride (98-107) mmol/L Carbon Dioxide (22-30) mmol/L Glucose 127 H (74-99) mg/dL Calcium 7.6 L (8.4-10.2) mg/dL Total Bilirubin (0.2-1.3) mg/dL AST (17-59) U/L ALT (4-49) U/L Troponin I (0.000-0.034) ng/mL Urine Protein (Negative) Urine Bilirubin (Negative) Ur Leukocyte Esterase (Negative) Urine Mucus (None) /hpf U Benzodiazepines Scrn (NotDetected) U Marijuana (THC) Screen (NotDetected) Assessment and Plan Plan: -Hypertensive urgency: Patient blood pressures well controlled continue with present regimen. -Alcohol abuse: Patient is undergoing the alcohol rehabilitation program before this hospital physician -Mildly elevated troponins Secondary to her elevated blood pressure cardiology evaluated the patient and patient the will undergo an echocardiogram. -Nicotine abuse: Counseling was provided -Sleep apnea patient will continue with his CPAP machine will also rule out diabetes mellitus with hemoglobin A1c. -Acute alcoholic hepatitis -hypokalemia: Secondary to diuretics is receiving at home potassium will be replace -DVT prophylaxis early ambulation
[2020-03-23] MEDS ORDERED: POTASSIUM CHLORIDE ER 20 MEQ TAB.ER PO STA (12:15)
[2020-03-23 13:57] LABS: Hemoglobin A1C 5.3 % (4.0-6.0)
[2020-03-23] MEDS: traZODone HCL 50 MG TAB PO SCH (22:36)
[2020-03-24] MEDS: FOLIC ACID 1 MG TAB PO SCH (06:14)
[2020-03-24] MEDS: THIAMINE 100 MG TAB PO SCH (06:14)
[2020-03-24] MEDS: POTASSIUM CHLORIDE ER 20 MEQ TAB.ER PO SCH ×4 (06:14→11:41)
[2020-03-24 07:26] LABS: African American GFR (CKD) >90 (>60 ml/min/1.73 sqM); Anion Gap 9 mmol/L; Blood Urea Nitrogen 17 mg/dL (9-20); Calcium 7.8 mg/dL (8.4-10.2); Carbon Dioxide 32 mmol/L (22-30); Chloride 96 mmol/L (98-107); Glucose 111 mg/dL (74-99); Non-African American GFR(CKD) >90 (>60 ml/min/1.73 sqM); Sodium 137 mmol/L (137-145)
[2020-03-24 07:44] LABS: Potassium 2.7 mmol/L (3.5-5.1)
[2020-03-24] MEDS: carvediloL 12.5 MG TAB PO SCH (09:13)
[2020-03-24] MEDS: hydroCHLOROthiazide 25 MG TAB PO SCH (09:13)
[2020-03-24] MEDS: amLODIPine 10 MG TAB PO SCH (09:13)
[2020-03-24] MEDS: MULTIVITAMINS, THERA 1 EACH TAB PO SCH (09:14)
[2020-03-24 09:18] VITALS: BP 154/113; PULSE 95; RESP 19; TEMP 97.6
[2020-03-24] MEDS ORDERED: POTASSIUM CHLORIDE ER 20 MEQ TAB.ER PO STA (10:59)
--- NOTE | 2020-03-24 11:58 | P.PN ---
Subjective Progress Note Date: 03/24/20 Principal diagnosis: Hypertension urgency This is a very pleasant 44 year-old the [place]ag[place] gentleman with a past medical history significant for hypertension and history of alcohol abuse who was transferred from an alcohol rehab facility to the hospital for further evaluation of uncontrolled blood pressure. The patient was admitted to that facility just recently. His pressure was found to be elevated and he was transferred for further evaluation. The patient stated that he was taking blood pressure medications at home but he has not been taking the medication for the last several days. We consulted to see the patient for further evaluation of abnormal cardiac enzymes. The troponin was checked and came in to be slightly abnormal but flat across the board. The patient clinically is asymptomatic. He denies any symptoms of chest pain or chest discomfort, shortness of breath, dizziness, heart racing, heart fluttering, or syncope. No lower extremities edema. The pressure has been better controlled on the current medical regimen. The EKG showed sinus rhythm without significant ST or T-wave abnormalities. The patient is not aware of any history of coronary artery disease or congestive heart failure or cardiac arrhythmia but he is aware of hypertension but he is not very compliant with his blood pressure medications. The EKG also showed findings consistent with left ventricular hypertrophy. The patient was seen today 2019. He remains asymptomatic from a cardiac vascular standpoint overview. The blood pressure is much better on the current medical regimen with carvedilol as well as amlodipine. The echo still pending. Objective - Vital Signs Vital signs: Vital Signs Temp 97.6 F 03/24/20 08:00 Pulse 95 03/24/20 08:00 Resp 19 03/24/20 08:00 BP 154/113 03/24/20 08:00 Pulse Ox 97 03/24/20 08:00 Intake & Output 03/23/20 03/24/20 03/24/20 18:59 06:59 18:59 Intake Total 480 360 Balance 480 360 Intake: Oral 480 360 Other: # Voids 1 - Constitutional General appearance: Present: no acute distress - Respiratory Respiratory: bilateral: CTA - Cardiovascular Rhythm: regular Heart sounds: normal: S1, S2 - Labs CBC & Chem 7: 03/22/20 14:00 03/24/20 06:47 Labs: Abnormal Lab Results - Last 24 Hours (Table) 03/24/20 Range/Units 06:47 Potassium 2.7 L* (3.5-5.1) mmol/L Chloride 96 L (98-107) mmol/L Carbon Dioxide 32 H (22-30) mmol/L Glucose 111 H (74-99) mg/dL Calcium 7.8 L (8.4-10.2) mg/dL Assessment and Plan Assessment: Assessment #1 hypertension urgency #2 history of alcohol abuse #3 possible sleep apnea Plan #1 continue the current medical regimen #2 follow-up on the echocardiogram
--- NOTE | 2020-03-24 17:04 | P.DS ---
Providers Date of admission: 03/22/20 16:57 Attending physician: Rubén Marmolejo Consults: 03/22/20 17:25 Consult Physician Routine Consulting Provider: Miller Elder Consult Reason/Comments: troponin elevation Do you want consulting provider notified?: Yes Primary care physician: Physician Nonstaff Hospital Course: 44 year-old the [place] gentleman with a past medical history significant for hypertension and history of alcohol abuse who was transferred from an alcohol rehab facility to the hospital for further evaluation of uncontrolled blood pressure. The patient was admitted to that facility just recently. His pressure was found to be elevated and he was transferred for further evaluation. The patient stated that he was taking blood pressure medications at home but he has not been taking the medication for the last several days. We consulted to see the patient for further evaluation of abnormal cardiac enzymes. The troponin was checked and came in to be slightly abnormal but flat across the board. The patient clinically is asymptomatic. He denies any symptoms of chest pain or chest discomfort, shortness of breath, dizziness, heart racing, heart fluttering, or syncope. No lower extremities edema. The pressure has been better controlled on the current medical regimen. The EKG showed sinus rhythm without significant ST or T-wave abnormalities. The patient is not aware of any history of coronary artery disease or congestive heart failure or cardiac arrhythmia but he is aware of hypertension but he is not very compliant with his blood pressure medications. The EKG also showed findings consistent with left ventricular hypertrophy. At this point I would continue the current medical regimen. Continue monitor the blood pressure. Consider medical treatment for the mildly abnormal troponin which is likely related to uncontrolled blood pressure. I'll obtain an echocardiogram to assess for hypertensive heart disease and evidence of left ventricular hypertrophy. We'll continue following up with the patient. 03/23/2020 Patient's blood pressure is well controlled at this time continue with the present regimen patient's potassium is which is being replaced. Patient I was a valid by cardiology because of mildly elevated troponin and echo is being obtain at this time further management as per cardiology. 03/24/2020 Patient blood pressures are fairly well controlled that expected to get better in next 2-3 days. Patient is severely hypokalemic will replace the potassium today after which patient will be discharged patient was discharged on 20 mg twice a day of potassium as patient will be taking hhydrochlorothiazidefor blood pressure. Repeating BMP in about 2-3 days because of his severe hypokalemia here and patient being on potassium supplementation at home. Unfortunately I do not have an echocardiogram report but will follow-up with echocardiogram report tomorrow not expecting any abnormality and the echo cardiac exam because of which are everted and discharge the patient. PHYSICAL EXAMINATION: GENERAL: The patient is alert and oriented x3, not in any acute distress. Obese HEENT: Pupils are round and equally reacting to light. EOMI. No scleral icterus. No conjunctival pallor. Normocephalic, atraumatic. No pharyngeal erythema. No thyromegaly. CARDIOVASCULAR: S1 and S2 present. No murmurs, rubs, or gallops. PULMONARY: Chest is clear to auscultation, no wheezing or crackles. ABDOMEN: Soft, nontender, nondistended, normoactive bowel sounds. No palpable organomegaly. MUSCULOSKELETAL: No joint swelling or deformity. EXTREMITIES: No cyanosis, clubbing, or pedal edema. NEUROLOGICAL: Gross neurological examination did not reveal any focal deficits. SKIN: No rashes. Assessment and Plan Plan: -Hypertensive urgency: Patient blood pressures well controlled continue with present regimen. -Alcohol abuse:patient is going to [facility] -Mildly elevated troponins Secondary to her elevated blood pressure cardiology evaluated the patient , cleared for discharge elevated troponins are secondary to elevated blood pressure and echo cardiac exam is pending will be followed tomorrow -Nicotine abuse: Counseling was provided -Sleep apnea patient will continue with his CPAP machine will also rule out diabetes mellitus with hemoglobin A1c. -Acute alcoholic hepatitis -hypokalemia: Secondary to diuretics is receiving at home potassium was replaced Patient Condition at Discharge: Stable Plan - Discharge Summary Discharge Rx Participant: No New Discharge Prescriptions: New carvediloL [Coreg*] 25 mg PO BID #60 tab hydroCHLOROthiazide [Hydrodiuril] 50 mg PO DAILY tab Potassium Chloride ER [K-Dur 20] 20 meq PO BID #60 tab.er.prt Continue traZODone HCL [Desyrel] 50 - 150 mg PO HS Ibuprofen [Motrin] 600 mg PO Q6H PRN PRN Reason: Pain Or Fever > 100.5 Chlorpheniramine Maleate [Chlor-Trimeton] 4 mg PO Q4H PRN PRN Reason: Allergy Symptoms Acetaminophen [Tylenol 8 Hour] 650 mg PO Q4H PRN PRN Reason: Pain Or Fever > 100.5 amLODIPine [Norvasc] 10 mg PO ONCE Folic Acid 1 mg PO DAILY@0600 Thiamine [Vitamin B-1] 100 mg PO DAILY Multivitamins, Thera [Multivitamin (formulary)] 1 tab PO DAILY Discontinued cloNIDine HCL [Catapres] 0.1 - 0.3 mg PO Q4H PRN MDD OVER 160/100 PRN Reason: Blood Pressure - High hydroCHLOROthiazide [Hydrodiuril] 25 mg PO ONCE cloNIDine HCL [Catapres] 0.2 mg PO ONCE Labetalol [Trandate] 200 mg PO BID@0600,1730 Potassium Chloride 10 meq PO DAILY@0600 Discharge Medication List Acetaminophen [Tylenol 8 Hour] 650 mg PO Q4H PRN 03/22/20 [History] Chlorpheniramine Maleate [Chlor-Trimeton] 4 mg PO Q4H PRN 03/22/20 [History] Folic Acid 1 mg PO DAILY@0600 03/22/20 [History] Ibuprofen [Motrin] 600 mg PO Q6H PRN 03/22/20 [History] Multivitamins, Thera [Multivitamin (formulary)] 1 tab PO DAILY 03/22/20 [History] Thiamine [Vitamin B-1] 100 mg PO DAILY 03/22/20 [History] amLODIPine [Norvasc] 10 mg PO ONCE 03/22/20 [History] traZODone HCL [Desyrel] 50 - 150 mg PO HS 03/22/20 [History] Potassium Chloride ER [K-Dur 20] 20 meq PO BID #60 tab.er.prt 03/24/20 [Rx] carvediloL [Coreg*] 25 mg PO BID #60 tab 03/24/20 [Rx] hydroCHLOROthiazide [Hydrodiuril] 50 mg PO DAILY tab 03/24/20 [Rx] Follow up Appointment(s)/Referral(s): Nonstaff,Physician [Primary Care Provider] - 3 Days (Please see physician for follow up ) Ambulatory/Diagnostic Orders: Basic Metabolic Panel [LAB.AMB] Time Frame: 3 Days, Location: None Selected Patient Instructions/Handouts: Hypokalemia (DC), Alcohol Withdrawal (DC), Hypertension (DC) Activity/Diet/Wound Care/Special Instructions: Patient to return to [facility] at discharge - call at discharge and they will transport patient back - [phone] Discharge Disposition: HOME SELF-CARE
--- NOTE | 2020-03-24 20:00 | ECHOF ---
Referral Reason:elev troponin MEASUREMENTS -------- HEIGHT: 182.9 cm WEIGHT: 123.4 kg BP: 130/89 IVSd: 1.8 cm (0.6 - 1.1) LVIDd: 5.0 cm (3.9 - 5.3) LVPWd: 1.7 cm (0.6 - 1.1) IVSs: 2.6 cm LVIDs: 3.4 cm LVPWs: 2.1 cm LA Diam: 4.4 cm (2.7 - 3.8) RVIDd: 3.6 cm (< 3.3) LAESV Index (A-L): 32.14 ml/m Ao Diam: 3.6 cm (2.0 - 3.7) AV Cusp: 2.7 cm (1.5 - 2.6) EPSS: 0.8 cm MV E Jonathan: 0.85 m/s MV DecT: 154 ms MV A Jonathan: 0.59 m/s MV E/A Ratio: 1.44 RAP: 5.00 mmHg RVSP: 30.25 mmHg MV EF SLOPE: 134.00 mm/s (70 - 150) MV EXCURSION: 14.75 mm (> 18.000) FINDINGS -------- Sinus rhythm. This was a technically good study. The left ventricular size is normal. There is severe concentric left ventricular hypertrophy. Ove rall left ventricular systolic function is mild-moderately impaired with, an EF between 40 - 45 %. The right ventricle is mildly enlarged. LA is midly dilated 29-33ml/m2. The right atrium is normal in size. Interatrial and interventricular septum intact. The aortic valve is trileaflet and appears structurally normal. There is trace to mild mitral regurgitation. Mild tricuspid regurgitation present. Right ventricular systolic pressure is normal at < 35 mmHg. Trace/mild (physiologic) pulmonic regurgitation. The aortic root size is normal. Normal inferior vena cava with normal inspiratory collapse consistent with estimated right atrial pre ssure of 5 mmHg. There is no pericardial effusion. CONCLUSIONS -------- 1. The left ventricular size is normal. 2. There is severe concentric left ventricular hypertrophy. 3. Overall left ventricular systolic function is mild-moderately impaired with, an EF between 40 - 45 %. 4. The right ventricle is mildly enlarged. 5. LA is midly dilated 29-33ml/m2. 6. The aortic valve is trileaflet and appears structurally normal. 7. There is trace to mild mitral regurgitation. 8. Mild tricuspid regurgitation present. 9. Trace/mild (physiologic) pulmonic regurgitation. REQUIREMENTS MANAGER: Maya Hannah RDCS
== END 2020-03-24 14:12 | DRG 305 ==
LOC: EC 12:50 → 3SCARD 16:57
PROVIDERS: ADMIT Internal Medicine; ATTEND Internal Medicine
DX: I16.0 Hypertensive urgency (principal); Z11.59 Encounter for screening for other viral diseases; E87.6 Hypokalemia; Z71.6 Tobacco abuse counseling; F17.210 Nicotine dependence, cigarettes, uncomplicated; G47.30 Sleep apnea, unspecified; Z99.89 Dependence on other enabling machines and devices; I11.9 Hypertensive heart disease without heart failure; T50.2X5A Adverse effect of carbonic-anhydrase inhibitors, benzothiadiazides and other diuretics, initial encounter; R79.89 Other specified abnormal findings of blood chemistry; F10.10 Alcohol abuse, uncomplicated; T46.5X6A Underdosing of other antihypertensive drugs, initial encounter; Z91.128 Patient's intentional underdosing of medication regimen for other reason; E66.9 Obesity, unspecified; Z68.36 Body mass index [BMI] 36.0-36.9, adult; Z79.899 Other long term (current) drug therapy; K70.10 Alcoholic hepatitis without ascites; Z82.49 Family history of ischemic heart disease and other diseases of the circulatory system
CPT/HCPCS: 36415; 71046; 80048; 80053; 80306; 81001; 82803; 83036; 84484; 85025; 93005; 93306; 96361; 96365; 96366; 96375; 99285